=== PATIENT | female | born 1985 | race Caucasian/White ===

== ENCOUNTER 2020-08-14 17:54 | Emergency (ER) | payer BC, SELFPAY ==
[2020-08-14 18:00] VITALS: BP 122/68; PULSE 83; RESP 14; TEMP 36.7; O2SAT 99
--- NOTE | 2020-08-14 18:07 | ED.GENADULT ---
HPI - General Adult General Chief complaint: Skin/Abscess/Foreign Body Stated complaint: Rash Time Seen by Provider: 08/14/20 18:07 Source: patient Mode of arrival: ambulatory Limitations: no limitations History of Present Illness HPI narrative: 34-year-old female patient presents to the [facility] with complaints of a rash bilateral arms for the past 3 days. Patient states she had a similar rash like this on July 11 after she had started taking Lexapro. Patient states she thought it was a reaction to the Lexapro so she stopped the medication the rash went away. Patient states she has not restarted the Lexapro but the rashes come back now 3 days later. Denies any sore throat, trouble swallowing, denies any shortness of breath or chest pain. Patient states it is very itchy but denies taking any Benadryl for the itchiness. Denies putting any creams or lotions on it. Patient denies any new detergents, lotions or soaps. Related Data Home Medications Medication Instructions Recorded Confirmed albuterol sulfate [ProAir HFA] 1 puff INHALATION Q4H PRN 08/22/19 08/14/20 Allergies Allergy/AdvReac Type Severity Reaction Status Date / Time sulfamethoxazole Allergy Unknown Hives / Verified 08/14/20 18:10 Red Face trimethoprim Allergy Unknown Hives / Verified 08/14/20 18:10 Red Face Review of Systems Review of Systems: Narrative: CONSTITUTIONAL: Denies fever, chills, or sweats. EYES: Denies visual changes, redness, or discharge. ENT: Denies rhinorrhea, congestion, sore throat, or otalgia. CARDIOVASCULAR: Denies chest pain, palpitations, or edema. RESPIRATORY: Denies cough or dyspnea. GASTROINTESTINAL: Denies abdominal pain, nausea, vomiting, or diarrhea. GENITOURINARY: Denies dysuria or hematuria. SKIN: Positive rash with itching to bilateral upper extremity MUSCULOSKELETAL: Denies back pain, joint pain, or myalgia. NEUROLOGIC: Denies headache, numbness, or weakness. PSYCHIATRIC: Denies anxiety or depression. [facility] Past Medical History Medical History Anxiety Arthritis Asthma Lower extremity surgery planned Surgical History Surgical History Delivery by section H/O section History of hip surgery Family History Family History Mother Cancer Father Heart failure Social History Social History Smoking packs per day: 1 Smoking cigarettes per day: 20.0 Years smoked: 20 Smoking pack-years: 20.00 Smoking status: Current every day smoker Tobacco type: cigarettes Alcohol intake: current Drinks per week: 3 Substance use: never Comments At the time of my signature I agree with nursing past medical history, surgical, social, and family history. There is no relevant family history pertinent to the presenting complaint. Exam Narrative: Exam Narrative: GENERAL: Well-appearing, well-nourished, and in no acute distress. HEAD: Normocephalic, atraumatic. EYES: PERRLA and EOMI. ENT: Nares clear, no rhinorrhea or epistaxis. Mucous membranes moist. NECK: Supple. No lymphadenopathy CHEST: Clear to auscultation. No respiratory distress. HEART: Regular rate and rhythm. No murmur heard. Normal peripheral pulses. ABDOMEN: Soft, nontender, nondistended, normal active bowel sounds. EXTREMITIES: Normal range of motion. No edema. SKIN: Warm, dry, patient has small papule rash on erythemic base to various areas to the bilateral upper extremities. There is a similar rash noted to bilateral hands. It does not extend to the shoulders at all. NEURO: No focal deficits. Alert and oriented x3. Course Vital Signs Vital signs: Vital Signs Temperature 36.7 C 08/14/20 18:00 Pulse Rate 83 08/14/20 18:00 Respiratory Rate 14 08/14/20 18:00 Blood Pressure 122/68 08/14/20 1
== END 2020-08-14 18:24 | disposition home or self-care (01) ==
PROVIDERS: Emergency Provider Nurse Practitioner Family; PCP Family Medicine
DX: L23.9 Allergic contact dermatitis, unspecified cause (principal); F17.210 Nicotine dependence, cigarettes, uncomplicated; M19.90 Unspecified osteoarthritis, unspecified site; J45.909 Unspecified asthma, uncomplicated
CPT/HCPCS: 99213; G0463

== ENCOUNTER 2020-10-24 10:07 | Outpatient (CLI) | payer BC, SELFPAY ==
--- NOTE | ~2020-10-24 | XR_ITS ---
EXAMINATION: XR chest 2V 10/24/2020 10:16 INDICATION: Nicotine dependence PROCEDURE: 2 view chest COMPARISON: No prior studies for comparison. FINDINGS: The lungs are clear. The cardiomediastinal silhouette is within normal limits. There are no pleural effusions. There is no pneumothorax suspected. IMPRESSION: 1: NO ACUTE CARDIOPULMONARY DISEASE. Reviewed, dictated and finalized at location B. [employer]
== END 2020-10-24 10:08 | disposition home or self-care (01) ==
PROVIDERS: PCP Family Medicine; Visit Provider Family Medicine
DX: F17.200 Nicotine dependence, unspecified, uncomplicated (principal)
CPT/HCPCS: 71046

== ENCOUNTER 2021-01-12 12:32 | Outpatient (CLI) | payer BC, SELFPAY ==
--- NOTE | ~2021-01-12 | XR_ITS ---
EXAMINATION: XR wrist RT min 3V, XR wrist LT min 3V DATE: 01/12/2021 12:48 INDICATION: Bilateral wrist pain TECHNIQUE: 1. Posteroanterior, ulnar deviation, oblique, and lateral views of the left wrist were obtained. 2. Posteroanterior, ulnar deviation, oblique, and lateral views of the right wrist were obtained. COMPARISON: none FINDINGS: Alignment is normal at both wrists. No fracture. Joint spaces are normal. No cortical erosions, perio steal reaction or suspicious lytic or blastic bone lesions. Soft tissues are unremarkable. IMPRESSION: 1. Negative bilateral wrist radiographs. Reviewed, dictated and finalized at location A. IMPRESSION: 1. Negative bilateral wrist radiographs.
== END 2021-01-12 12:33 | disposition home or self-care (01) ==
LOC: ANHBWCIMG 12:34
PROVIDERS: PCP Family Medicine; Visit Provider Orthopaedic Surgery
DX: M25.531 Pain in right wrist (principal); M25.532 Pain in left wrist
CPT/HCPCS: 73110

== ENCOUNTER 2021-05-25 14:18 | Outpatient (CLI) | payer BC, SELFPAY ==
--- NOTE | ~2021-05-25 | XR_ITS ---
EXAMINATION: XR knee RT min 4V, XR tibia fibula RT 2V DATE: 05/25/2021 14:39 INDICATION: Right knee pain. Surgery 4 years prior. TECHNIQUE: 1. Weight bearing anteroposterior and Savage, sunrise, and flexed lateral views of the right knee were obtained 2. AP and lateral views of the right tibia and fibula were obtained. COMPARISON: None. FINDINGS: Old healed tibial plateau fracture with medial and lateral plate and screw fixations. There is also a n additional fixation pin. Alignment of the healed fracture appears near-anatomic. There is up to 2.5 mm incongruity between the articular surface of the lateral tibial plateau and the articular surface along the lateral aspect of the intercondylar eminence. Tricompartmental osteoarthritis with moderat e joint space narrowing can the lateral compartment, mild in the medial compartment and mild in the p atellofemoral compartment. No right knee joint effusion. No acute fracture. Right ankle joint space a ppears normal on the frontal projection. There are couple small round lucencies projecting over the m id tibial diaphysis likely representing tracks for prior external fixation/traction. IMPRESSION: 1. Old healed internally fixed right tibial plateau fracture with likely secondary lateral compartmen t predominant moderate tricompartmental osteoarthritis at the right knee. Reviewed, dictated and finalized at location A. IMPRESSION: 1. Old healed internally fixed right tibial plateau fracture with likely second jodi lateral compartment predominant moderate tricompartmental osteoarthritis at the right knee.
== END 2021-05-25 14:19 | disposition home or self-care (01) ==
PROVIDERS: PCP Family Medicine; Visit Provider Orthopaedic Surgery
DX: M17.11 Unilateral primary osteoarthritis, right knee (principal)
CPT/HCPCS: 73564; 73590

== ENCOUNTER → 2021-06-01 04:00 | Outpatient (CLI) | payer BC, SELFPAY ==
[2021-06-01 19:01] LABS: SARS-CoV-2 RNA PCR Negative
== END ==
PROVIDERS: PCP Family Medicine; Visit Provider Orthopaedic Surgery
DX: Z01.812 Encounter for preprocedural laboratory examination (principal); Z20.822 Contact with and (suspected) exposure to COVID-19
CPT/HCPCS: C9803; U0003; U0005

== ENCOUNTER 2021-06-02 13:49 | Outpatient (CLI) | payer BC, SELFPAY ==
[2021-06-02 21:52] LABS: Vitamin D 25 Hydroxy 37.6 ng/mL
[2021-06-09 10:07] LABS: Amphetamine Negative
[2021-06-09 10:08] LABS: Barbiturates Negative; Oxidant Negative; pH 7.1
[2021-06-09 10:09] LABS: Marijuana Metabolite Positive
[2021-06-09 10:11] LABS: Cocaine Metabolite Negative; Opiates Negative
[2021-06-09 10:12] LABS: Benzodiazepines Negative
[2021-06-09 10:13] LABS: Marijuana Metabolite 63
== END 2021-06-02 13:50 | disposition home or self-care (01) ==
LOC: ANHBWCLAB 13:50
PROVIDERS: PCP Family Medicine; Visit Provider Family Medicine
DX: F41.9 Anxiety disorder, unspecified (principal); R79.89 Other specified abnormal findings of blood chemistry
CPT/HCPCS: 36415; 80299; 82306

== ENCOUNTER 2021-06-04 01:09 | Day surgery (SDC) | payer BC, SELFPAY ==
[2021-05-27 12:34] VITALS: BMI 32.0
--- NOTE | 2021-06-03 12:13 | WPDANESEPPF ---
Anes - Initial Pre Proc Eval Procedure: Operation Date: 06/04/21 08:00 Proposed Procedures p Left Carpal Tunnel Release, Right Knee Cortisone Injection - Milton Brown MD Date/Time: 06/03/21 12:13 Surgeon: Milton Brown MD Pre Op Diagnosis: left carpal tunnel syndrome, right knee arthritis Patient Data Age: 35 Gender: F Height: 1.57 m Weight: 79.5 kg Allergies Allergy/AdvReac Type Severity Reaction Status Date / Time sulfamethoxazole Allergy Severe Hives / Verified 06/04/21 06:20 Red Face trimethoprim Allergy Severe Hives / Verified 06/04/21 06:20 Red Face latex Allergy Mild Rash Verified 06/04/21 06:20 Home Medications Medication Instructions Recorded Confirmed Type buprenorphine 4 mg-naloxone 1 mg 1 film SUBLINGUAL DAILY 01/13/21 06/04/21 History sublingual film ibuprofen 600 mg tablet 600 mg PO TID 01/13/21 06/04/21 History albuterol sulfate 90 mcg/actuation 1 inh INHALATION Q4H PRN #8.5 g 06/02/21 06/04/21 Rx aerosol inhaler alprazolam 0.25 mg tablet 0.25 mg PO TID PRN #90 tablet 06/02/21 06/04/21 Rx varenicline 0.5 mg (11)-1 mg (42) See Rx Instructions PO PER PKG DIR 06/02/21 06/04/21 Rx tablets in a dose pack #53 ea Patient hx anesthesia problems: none Family hx anesthesia problems: none PMFSH Past Medical History Medical History (Updated 06/03/21 @ 12:15 by Rai Andino MD) Anxiety Anxiety Arthritis Asthma Chronic narcotic use History of bipolar disorder 09/23/2020 1st discussed in this office patient has history before of manic episodes and has been put on Lamictal by psych and continues counseling History of postoperative complication of surgical procedure History of pulmonary embolism Latex allergy Left carpal tunnel syndrome Lower extremity surgery planned Pain of right knee after injury Smoker Wears glasses Surgical History Surgical History Delivery by section H/O section x4: 08, 13, 17, 19 History of hip surgery 2018 Family History Family History Mother Cancer Father Heart failure Other Asthma Breast cancer Lung cancer Social History Social History (Updated 06/02/21 @ 13:11 by Hilaria Mcqueen [facility]) Smoking packs per day: 0.5 Smoking cigarettes per day: 10.0 Years smoked: 20 Smoking pack-years: 10.00 Smoking status: Current every day smoker Tobacco type: cigarettes Alcohol intake: current Drinks per week: 2 Alcohol use details: beer Substance use: current Substance use type: marijuana Living arrangements: with family Gender identity (if verbalized by the patient): Female Spiritual care concerns: No Anes - Eval Final PreProcedure Day of Procedure 06/03/21 12:13 Patient weight: obese Heart: regular rate and rhythm Lungs: clear to auscultation and normal air movement Airway: Mallampati scale class II Neurological: alert and oriented Last oral intake: >/= 8 hours ASA classification: III Emergent: no Anesthetic plan: proceed Anesthesia type and monitoring: general GIVS Informed Consent: The patient's anesthetic plan and its attendant risks and benefits were discussed with the patient/family/POA. Questions were solicited and answers provided to the satisfaction of the patient/family/POA.
[2021-06-04] MEDS: ACETAMINOPHEN 500 MG TABLET 1000 MG PO (06:39)
[2021-06-04] MEDS: LACTATED RINGERS 1,000 ML 30 ML IV CONT (06:39)
[2021-06-04] MEDS: KETOROLAC 15 MG/ML VIAL (*BKC) IV PUSH (06:40)
[2021-06-04 06:47] VITALS: BMI 31.9
[2021-06-04 06:49] VITALS: BP 112/61; PULSE 86; RESP 16; TEMP 37.1; O2SAT 97
--- NOTE | 2021-06-04 06:54 | WPDHPUPDATE1 ---
History and Physical Update Update Date/Time: 06/04/21 06:54 History and Physical has been reviewed, including an updated exam of the patient. There are NO changes in the patient's condition. Risks, benefits, and alternatives have been discussed and questions answered. Patient agrees to proceed with procedure.
--- NOTE | 2021-06-04 08:21 | SUR.PREOP ---
PT NOTIFIED OF DELAY, DR FELICIANO IN MEETING
[2021-06-04] MEDS: ceFAZolin 2 GM/D5W 50 ML 2 GM/50 ML BAG IVPB (08:35)
[2021-06-04] MEDS: methylPREDNISolone ACETATE 80 MG/ML VIAL IM (08:46)
[2021-06-04] MEDS: BUPIVACAINE HCL 0.25% PF 30 ML VIAL INFILTRATE (08:46)
[2021-06-04] MEDS: BUPIVACAINE/EPINEPHRINE 0.25% 50 ML VIAL INFILTRATE (09:02)
[2021-06-04] MEDS: LIDOCAINE HCL 2% LOCAL INJ 20 ML VIAL 8 ML INFILTRATE (09:03)
[2021-06-04 09:13] VITALS: BP 92/53; PULSE 80; RESP 16; O2SAT 96
--- NOTE | 2021-06-04 09:21 | P.OP_ITS ---
Procedure Note - Detailed Date of Procedure 06/04/21 Pre-op Diagnosis left carpal tunnel syndrome, right knee arthritis Post-op Diagnosis same Procedure Performed Left carpal tunnel release, right knee injection cortisone Surgeon Milton Brown MD Acting Manager assistant director of public works Anesthesia MAC Indications 35-year-old with bilateral carpal tunnel syndrome, severe. Failed previous cortisone injection of the carpal tunnel. Presents now for operative release. Also with posttraumatic degeneration of the right knee. Indicated for cortisone injection to be performed while under anesthesia. Description of Procedure After informed consent was given, the operative extremity was marked in the preoperative holding area. Intravenous antibiotics were given. The patient was taken to the operating room and underwent conscious sedation by the anesthesia team. A time-out was performed confirming patient, procedure, and operative site. Local infiltrate at the carpal tunnel was done with 0.5% marcaine. Prepping and draping was done using chloraprep skin solution with usual surgical sterile technique. Anatomic landmarks marked on skin. Hand was exsanguinated and arm tourniquet inflated to 225mmHg. Incision was made with #15 blade knife in skin crease on volar palm. Hemostasis was achieved with electrocautery. Careful dissection was carried down to the transverse carpal ligament. Retractors were placed. Ligament overlying median nerve was incised in line with skin incision using paiute-shoshone blade. Proximal and distal release was done with metzenbaum scissors under direct visualization. Mosquito clamp was placed deep to ligament to protect nerve during release. The nerve was inspected and noted to be intact with mild flattening. Tendons had good excursion. The tourniquet was then released and pressure held. Bleeding points were coagulated with bipolar cautery. The wound was thoroughly irrigated with antibiotic solution. The skin was closed with 4-0 nylon interrupted suture. A sterile dressing was applied. Right knee was identified. Anatomic landmarks mapped out. Skin sterilized with Hibiclens prep solution. 25 gauge needle used to infiltrate the knee from the anteromedial position. 80 mg of Depo-Medrol and 2 cc of 0.25% Marcaine injected. Bandage placed. Good capillary refill in the fingers and thumb was noted. The patient was transported to the recovery room in stable condition. All sponge, needle, instrument counts were correct at the end of the case. Estimated Blood Loss 2 Tourniquet Time 7 Drains No Packing No Pathology none sent Complications None Condition stable Disposition PACU
[2021-06-04 09:40] VITALS: BP 92/52; PULSE 73; RESP 16; O2SAT 94
[2021-06-04 10:05] VITALS: BP 103/66; PULSE 64; RESP 16
== END 2021-06-04 10:15 | disposition home or self-care (01) ==
PROVIDERS: PCP Family Medicine; Visit Provider Orthopaedic Surgery
PROC: (CPT 64721; principal; 2021-06-04 08:00)
DX: G56.02 Carpal tunnel syndrome, left upper limb (principal); M17.11 Unilateral primary osteoarthritis, right knee; J45.909 Unspecified asthma, uncomplicated; F31.9 Bipolar disorder, unspecified; F41.9 Anxiety disorder, unspecified; Z79.891 Long term (current) use of opiate analgesic; Z86.711 Personal history of pulmonary embolism; Z79.51 Long term (current) use of inhaled steroids; F17.210 Nicotine dependence, cigarettes, uncomplicated; E66.9 Obesity, unspecified; Z68.31 Body mass index [BMI] 31.0-31.9, adult
CPT/HCPCS: 64721; 20610; A9270; J0690; J1040; J1100; J1170; J1885; J2250; J2405; J2704; J3010; J7120

== ENCOUNTER 2022-03-27 12:08 | Emergency (ER) | payer OTHER, SELFPAY ==
--- NOTE | 2022-03-27 12:13 | ED.SKABFB ---
HPI - Skin/Abscess/Foreign Bdy General Chief complaint: Skin/Abscess/Foreign Body Stated complaint: Skin Sore Time Seen by Provider: 03/27/22 12:13 Source: patient and RN notes reviewed History of Present Illness HPI narrative: Patient is a 36-year-old female who presents the urgent care with complaints of a firm red and sore to the left buttocks. Patient states that she has a history of ingrown hairs and gets them often. States that this area is been there for approximately 2 months but worse in the last couple days since her and her have been squeezing on it. Patient has been using Epson salt baths. States that she has had a little bit of nausea but otherwise denies of any fever or other signs of infection. No other acute complaints. No acute distress noted. Patient aware of the plan of care. Some parts of this dictation were generated by voice recognition software and may contain typographical and/or grammatical inaccuracies. Related Data Home Medications Medication Instructions Recorded Confirmed buprenorphine 4 mg-naloxone 1 mg 1 film sublingual DAILY 01/13/21 03/27/22 sublingual film (Suboxone) Allergies Allergy/AdvReac Type Severity Reaction Status Date / Time sulfamethoxazole Allergy Severe Hives / Verified 03/27/22 12:20 Red Face trimethoprim Allergy Severe Hives / Verified 03/27/22 12:20 Red Face latex Allergy Mild Rash Verified 03/27/22 12:20 Review of Systems Review of Systems: CONSTITUTIONAL: Denies fever, chills, or sweats. EYES: Denies visual changes, redness, or discharge. ENT: Denies rhinorrhea, congestion, sore throat, or otalgia. CARDIOVASCULAR: Denies chest pain, palpitations, or edema. RESPIRATORY: Denies cough or dyspnea. GASTROINTESTINAL: Denies abdominal pain, nausea, vomiting, or diarrhea. GENITOURINARY: Denies dysuria or hematuria. SKIN: Reports of a tender red bump to the buttocks MUSCULOSKELETAL: Denies back pain, joint pain, or myalgia. NEUROLOGIC: Denies headache, numbness, or weakness. All other systems reviewed are negative, except as documented in HPI. [facility] Past Medical History Medical History Anxiety Anxiety Arthritis Asthma Chronic narcotic use History of bipolar disorder 09/23/2020 1st discussed in this office patient has history before of manic episodes and has been put on Lamictal by psych and continues counseling History of postoperative complication of surgical procedure History of pulmonary embolism Latex allergy Left carpal tunnel syndrome Lower extremity surgery planned Pain of right knee after injury Right carpal tunnel syndrome Smoker Wears glasses Surgical History Surgical History Delivery by section H/O section x4: 08, 13, 17, 19 History of hip surgery 2018 Family History Family History Mother Cancer Father Heart failure Other Asthma Breast cancer Lung cancer Social History Social History (Updated 09/10/21 @ 11:[address] [facility]) Smoking packs per day: 0.25 Smoking cigarettes per day: 5.0 Years smoked: 20 Smoking pack-years: 5.00 Smoking status: Current every day smoker Tobacco type: cigarettes Alcohol intake: current Drinks per week: 2 Alcohol use details: beer Substance use: current Substance use type: marijuana Gender identity (if verbalized by the patient): Female Spiritual care concerns: No Comments At the time of my signature, I reviewed and agree with the nursing past medical, surgical, social, and family history. There is no relevant family history pertinent to the patient complaint. Exam Narrative: GENERAL: This is a well-nourished, well-developed patient, in no apparent distress. HEAD: normocephalic, atraumatic. EYES: PERRL. Sclera clear/white. Vision is grossly intact. EARS: Ex
[2022-03-27 12:15] VITALS: BP 133/75; PULSE 96; RESP 18; TEMP 37.1; O2SAT 98
[2022-03-27 12:22] VITALS: BP 133/75; PULSE 96; RESP 18; TEMP 37.1; O2SAT 98
== END 2022-03-27 12:30 | disposition home or self-care (01) ==
PROVIDERS: Emergency Provider Nurse Practitioner Family; PCP Family Medicine
DX: L73.9 Follicular disorder, unspecified (principal); F17.210 Nicotine dependence, cigarettes, uncomplicated; M19.90 Unspecified osteoarthritis, unspecified site; J45.909 Unspecified asthma, uncomplicated; Z86.711 Personal history of pulmonary embolism; F41.9 Anxiety disorder, unspecified
CPT/HCPCS: 99213; G0463

== ENCOUNTER 2022-05-13 02:14 | Day surgery (SDC) | payer OTHER, SELFPAY ==
[2022-05-04 13:47] VITALS: BMI 31.8
--- NOTE | 2022-05-04 14:03 | PC.NURSE ---
Report to the Outpatient Waiting Room, entrance under the green pavilion located off [facility], at time __06:30AM on date ___8[birth year]____. OR Time: ___08:30AM . - You and your visitor will be asked to self-screen and do not enter if you have any COVID symptoms. - Only one visitor and NO children visitors are allowed at this time. - The patient visitor is requested to leave or wait in car when not with patient due to restrictions. - A mask is required within the hospital. Patients may have clear liquids (water, carbonated beverages, clear teas, apple juice) until 3 hours prior to surgery with a maximum of 20 ounces. - No food from midnight until time of surgery - NO LIQUIDS AFTER 05:30AM Take the following medications with a SIP of water the morning of surgery: XANAX, INHALER PRN Medications to discontinue per physician NAPROXEN STOP 05-06 VITD STOP 05-07 Date to take last dose Please no make-up, nail swedish, hairspray, perfume, deodorant, or body powder the day of surgery. No jewelry (including any body piercings) or valuables the day of surgery, leave them at home. Please take a shower or bath the night before, or the morning of, surgery with an antibacterial soap. Wear comfortable, loose fitting clothing. - Jewelry must be removed prior to entering the operating room. Rings and piercings that are not removed may be cut off. - The hospital will not accept responsibility for valuables. - Please leave all valuables, including medications, at home the day of surgery. If you are going home after surgery, a licensed stud driver must drive you home. - NO public transportation without another adult. - We recommend that an adult stay with you for 24 hours following discharge. - We also recommend that you do not drive, make important decision, drink alcoholic beverages, or take any drugs that were not prescribed by your health care provider for at least 24 hours after your discharge time. Follow any additional instructions given to you from your surgeon. If you or anyone in your household have experienced Covid symptoms in the past week, please notify your surgeon or the nurse liaison at the phone number below for possible testing. Telephone instructions given to __PATIENT___and asked if any additional questions and then verbalized understanding. Patient advised to call surgeon office or pre surgery nurse liaison [phone] if any additional questions.
[2022-05-13] VITALS (8 sets, daily range): BP systolic 101–119; BP diastolic 63–95; PULSE 72–101; RESP 12–20; TEMP 36.1–36.3; O2SAT 92–99; BMI 31.7
[2022-05-13] MEDS: ACETAMINOPHEN 500 MG TABLET 1000 MG PO (07:08)
[2022-05-13] MEDS: KETOROLAC 15 MG/ML VIAL (*BKC) IV PUSH (07:09)
--- NOTE | 2022-05-13 07:13 | WPDHPUPDATE1 ---
History and Physical Update Update Date/Time: 05/13/22 07:13 History and Physical has been reviewed, including an updated exam of the patient. There are NO changes in the patient's condition. Risks, benefits, and alternatives have been discussed and questions answered. Patient agrees to proceed with procedure.
[2022-05-13] MEDS: LACTATED RINGERS 1,000 ML 30 ML IV CONT (07:20)
--- NOTE | 2022-05-13 08:13 | WPDANESEPPF ---
Anes - Initial Pre Proc Eval Procedure: Operation Date: 05/13/22 08:30 Proposed Procedures p Right Carpal Tunnel Release - Milton Brown MD Date/Time: 05/13/22 08:13 Surgeon: Milton Brown MD Pre Op Diagnosis: right carpal tunnel syndrome Patient Data Age: 36 Gender: F Height: 1.57 m Weight: 78.8 kg Last Vital Signs Temp 36.3 C L 05/13/22 06:05 Pulse 80 05/13/22 06:05 Resp 16 05/13/22 06:05 BP 119/71 05/13/22 06:05 Pulse Ox 99 05/13/22 06:05 O2 Del Method Room Air 05/13/22 06:05 Allergies Allergy/AdvReac Type Severity Reaction Status Date / Time sulfamethoxazole Allergy Severe Hives / Verified 05/13/22 06:43 Red Face trimethoprim Allergy Severe Hives / Verified 05/13/22 06:43 Red Face latex Allergy Mild Rash Verified 05/13/22 06:43 Home Medications Medication Instructions Recorded Confirmed Type buprenorphine 4 mg-naloxone 1 mg 1 film sublingual DAILY 01/13/21 05/04/22 History sublingual film (Suboxone) cholecalciferol (vitamin D3) 1,250 1,250 mcg PO WEEKLY #12 caps 09/15/21 05/13/22 Rx mcg (50,000 unit) capsule albuterol sulfate 90 mcg/actuation 1 inh inhalation Q4H PRN shortness 05/03/22 05/04/22 Rx aerosol inhaler of breath or wheezing #8.5 grams gabapentin 300 mg capsule 300 mg PO TID 05/04/22 05/04/22 History naproxen 500 mg tablet 500 mg PO BID 05/04/22 05/13/22 History alprazolam 0.5 mg tablet 0.5 mg PO TID PRN anxiety #90 tabs 05/11/22 Rx Patient hx anesthesia problems: none Family hx anesthesia problems: none Results Review: All pre-operative results and documents have been reviewed as part of the pre-operative evaluation. [facility] Past Medical History Medical History Anxiety Anxiety Arthritis Asthma Chronic narcotic use History of bipolar disorder 09/23/2020 1st discussed in this office patient has history before of manic episodes and has been put on Lamictal by psych and continues counseling History of postoperative complication of surgical procedure History of pulmonary embolism Latex allergy Left carpal tunnel syndrome Lower extremity surgery planned Pain of right knee after injury Right carpal tunnel syndrome Smoker Wears glasses Surgical History Surgical History Delivery by section H/O section x4: 08, 13, 17, 19 History of hip surgery 2017 Family History Family History Mother Cancer Father Heart failure Other Asthma Breast cancer Lung cancer Social History Social History Smoking packs per day: 0.25 Smoking cigarettes per day: 5.0 Years smoked: 20 Smoking pack-years: 5.00 Smoking status: Current every day smoker Tobacco type: cigarettes Second hand tobacco smoke exposure: Yes (PARENTS) Alcohol intake: current Drinks per week: 1 Alcohol use details: beer Substance use: former Substance use type: marijuana and methamphetamine Other substance usage details: LAST USED METH Last use: 05-03-22 Living arrangements: with family Gender identity (if verbalized by the patient): Female Spiritual care concerns: No Anes - Eval Final PreProcedure Day of Procedure 05/13/22 08:13 Patient weight: normal Heart: regular rate and rhythm Lungs: clear to auscultation Airway: Mallampati scale class II Neurological: alert and oriented Last oral intake: >/= 8 hours ASA classification: III Emergent: no Anesthetic plan: proceed Anesthesia type and monitoring: general GIVS and standard monitoring Results Review: All pre-operative results and documents have been reviewed as part of the pre-operative evaluation. Informed Consent: The patient's anesthetic plan and its attendant risks and benefits were discussed with the patient/fa
[2022-05-13] MEDS: ceFAZolin 2 GM/D5W 50 ML 2 GM/50 ML BAG IVPB (08:38)
[2022-05-13] MEDS: BUPIVACAINE/EPINEPHRINE 0.25% 50 ML VIAL 10 ML INFILTRATE (09:07)
--- NOTE | 2022-05-13 09:32 | W.PM.PROC2 ---
Procedure Note - Detailed Date of Procedure 05/13/22 Pre-op Diagnosis right carpal tunnel syndrome Post-op Diagnosis Same Procedure Performed Right carpal tunnel release Surgeon Milton Brown MD [facility] [employer] and speech assistant Anesthesia General Indications Operative Indications: The patient has history, exam findings, and electrodiagnostic findings consistent with carpal tunnel syndrome. Conservative treatment with bracing/ splinting, activity modifications, medication, ergonomics, injections has failed. Symptoms are daily and affect ability to use hand. The patient desires operative treatment. Description of Procedure After informed consent was given, the operative extremity was marked in the preoperative holding area. Intravenous antibiotics were given. The patient was taken to the operating room and underwent general anesthesia by the anesthesia team. A time-out was performed confirming patient, procedure, and operative site. Local infiltrate at the carpal tunnel was done with 0.5% marcaine. Prepping and draping was done using chloraprep skin solution with usual surgical sterile technique. Anatomic landmarks marked on skin. Hand was exsanguinated and arm tourniquet inflated to 225mmHg. Incision was made with #15 blade knife in skin crease on volar palm. Hemostasis was achieved with electrocautery. Careful dissection was carried down to the transverse carpal ligament. Retractors were placed. Ligament overlying median nerve was incised in line with skin incision using bever blade. Proximal and distal release was done with metzenbaum scissors under direct visualization. Mosquito clamp was placed deep to ligament to protect nerve during release. The nerve was inspected and noted to be intact with mild flattening. Tendons had good excursion. The tourniquet was then released and pressure held. Bleeding points were coagulated with bipolar cautery. The wound was thoroughly irrigated with antibiotic solution. The skin was closed with 4-0 nylon interrupted suture. A sterile dressing was applied. Good capillary refill in the fingers and thumb was noted. The patient was transported to the recovery room in stable condition. All sponge, needle, instrument counts were correct at the end of the case. Estimated Blood Loss 2 Tourniquet Time 8 Drains No Packing No Pathology None sent Complications None Condition Stable Disposition PACU
== END 2022-05-13 11:10 | disposition home or self-care (01) ==
PROVIDERS: PCP Family Medicine; Visit Provider Orthopaedic Surgery
PROC: (CPT 64721; principal; 2022-05-13 08:30)
DX: G56.01 Carpal tunnel syndrome, right upper limb (principal); F31.9 Bipolar disorder, unspecified; F41.9 Anxiety disorder, unspecified; J45.909 Unspecified asthma, uncomplicated; Z79.51 Long term (current) use of inhaled steroids; F17.210 Nicotine dependence, cigarettes, uncomplicated
CPT/HCPCS: 64721; A9270; J0690; J1885; J2250; J2405; J2704; J3010; J7120

== ENCOUNTER 2023-06-15 12:44 | Outpatient (CLI) | payer OTHER, SELFPAY ==
[2023-06-20 11:38] LABS: Alphahydroxymidazolam NEGATIVE ng/mL (<50); Alphahydroxytriazolam NEGATIVE ng/mL (<50); Amphetamines NEGATIVE ng/mL (<500); Barbiturates NEGATIVE ng/mL (<300); Benzodiazepines POSITIVE ng/mL (<100); Cocaine Metabolite NEGATIVE ng/mL (<100); Hydroxyethylflurazepam NEGATIVE ng/mL (<50); Lorazepam NEGATIVE ng/mL (<50); Marijuana Metabolite 22 ng/mL (<5); Methadone Metabolite NEGATIVE ng/mL (<100); Opiates NEGATIVE ng/mL (<100); Oxidant NEGATIVE mcg/mL (<200); Temazepam NEGATIVE ng/mL (<50)
== END 2023-06-15 12:45 | disposition home or self-care (01) ==
LOC: ANHBWCLAB 12:46
PROVIDERS: PCP Nurse Practitioner Adult Health; Visit Provider Nurse Practitioner Adult Health
DX: Z51.81 Encounter for therapeutic drug level monitoring (principal); Z79.899 Other long term (current) drug therapy
CPT/HCPCS: 80299

== ENCOUNTER 2023-07-18 13:21 | Outpatient (CLI) | payer OTHER, SELFPAY ==
--- NOTE | ~2023-07-18 | MMUS_ITS ---
EXAMINATION: MM diagnostic andre BI w chetna, US breast BI complete HISTORY: Breast pain TECHNIQUE: Additional 3-D tomosynthesis images of the breasts were performed and synthetic 2-D images were generated. CAD analysis was submitted and interpreted. High resolution bilateral complete breas t ultrasound was performed. COMPARISON: None BREAST PARENCHYMAL COMPOSITION: Breast composed of scattered areas of fibroglandular density FINDINGS: MAMMOGRAPHIC FINDINGS: There is possible architectural distortion upper aspect of the right breast on spot MLO view, althoug h this is not confirmed on CC or mediolateral views. There is no mammographic evidence for malignancy in the left breast. ULTRASOUND: Complete bilateral US of all 4 quadrants of the breasts and retroareolar region was reviewed. Normal heterogeneous echotexture without focal solid or cystic mass in either breast. IMPRESSION: 1. Probable benign right breast asymmetry in the upper aspect of the right breast on MLO view. No son ographic correlate. 2. Recommend 6 month follow-up diagnostic right mammogram BI-RADS category 3, probably benign findings. Reviewed, dictated and finalized at location A. [facility] IMPRESSION: 1. Probable benign right breast asymmetry in the upper aspect of the right cyn st on MLO view. No sonographic correlate. 2. Recommend 6 month follow-up diagnostic right mammogram BI-RADS category 3, probably benign findings.
== END 2023-07-18 13:22 | disposition home or self-care (01) ==
LOC: ANHIMG 13:23
PROVIDERS: PCP Nurse Practitioner Adult Health; Visit Provider Nurse Practitioner Adult Health
DX: N64.4 Mastodynia (principal); R92.8 Other abnormal and inconclusive findings on diagnostic imaging of breast
CPT/HCPCS: 76641; 77062; 77066; G0279

== ENCOUNTER 2023-10-14 11:03 | Emergency (ER) | payer OTHER, SELFPAY ==
[2023-10-14 11:20] VITALS: BP 127/86; PULSE 92; RESP 18; TEMP 37.1; O2SAT 97
--- NOTE | 2023-10-14 11:45 | ED.URI ---
HPI - URI/Sore Throat General Chief Complaint: Upper Respiratory Infection Stated Complaint: Sore Throat/Congestioin/Cough Time Seen by Provider: 10/14/23 11:45 Source: patient Mode of arrival: ambulatory Limitations: no limitations History of Present Illness HPI Narrative: 38-year-old female presents with complaint of nasal congestion, runny nose, postnasal drainage, intermittent sore throat for the past 4-5 days. Afebrile. No body aches, chills. Patient not taking any [id number] medications to treat her symptoms. Patient is well-appearing. All systems reviewed and negative except as noted above. Related Data Home Medications Medication Instructions Recorded Confirmed gabapentin 300 mg capsule 600 mg PO TID 04/27/23 10/14/23 methocarbamol 500 mg tablet 500 mg PO DAILY 10/14/23 10/14/23 tramadol 50 mg tablet 50 mg PO PRN PRN Pain 10/14/23 10/14/23 Allergies Allergy/AdvReac Type Severity Reaction Status Date / Time sulfamethoxazole Allergy Severe Hives / Verified 07/12/23 13:07 Red Face trimethoprim Allergy Severe Hives / Verified 07/12/23 13:07 Red Face latex Allergy Mild Rash Verified 07/12/23 13:07 Review of Systems Review of Systems: CONSTITUTIONAL: Denies fever, chills, or sweats. EYES: Denies visual changes, redness, or discharge. ENT: Reports rhinorrhea, congestion, sore throat. Denies otalgia. CARDIOVASCULAR: Denies chest pain, palpitations, or edema. RESPIRATORY: Reports cough denies dyspnea. GASTROINTESTINAL: Denies abdominal pain, nausea, vomiting, or diarrhea. GENITOURINARY: Denies dysuria or hematuria. SKIN: Denies rash or itching. MUSCULOSKELETAL: Denies back pain, joint pain, or myalgia. NEUROLOGIC: Denies headache, numbness, or weakness. PSYCHIATRIC: Denies anxiety or depression. All other systems reviewed are negative, except as documented in HPI. [facility] Past Medical History Medical History Anxiety Anxiety Arthritis Asthma Chronic narcotic use History of bipolar disorder 09/23/2020 1st discussed in this office patient has history before of manic episodes and has been put on Lamictal by psych and continues counseling History of postoperative complication of surgical procedure History of pulmonary embolism Latex allergy Left carpal tunnel syndrome Lower extremity surgery planned Pain of right knee after injury Right carpal tunnel syndrome Smoker Wears glasses Surgical History Surgical History Delivery by section H/O section x4: 08, 13, 17, 19 History of hip surgery 2022 Family History Family History Mother Cancer Father Heart failure Other Asthma Breast cancer Lung cancer Social History Social History Smoking packs per day: 0.25 Smoking cigarettes per day: 5.0 Years smoked: 20 Smoking pack-years: 5.00 Smoking status: Current every day smoker Tobacco type: cigarettes Second hand tobacco smoke exposure: Yes (PARENTS) Alcohol intake: current Drinks per week: 1 Alcohol use details: beer Substance use: former Substance use type: marijuana and methamphetamine Other substance usage details: LAST USED METH Last use: 05-03-22 Lack of Transportation: No Lack of Food: Never True Current Housing: I Have Housing Concerned About Future Housing: No Difficulty Paying Gas/Electric Bills: No Difficulty Paying for Meds: No Currently Unemployed: No Education: Associate Degree Difficulty w/ Childcare or Family Care: No Living arrangements: with family Gender identity (if verbalized by the patient): Female Spiritual care concerns: No Comments At time of signature, agree with nursing past medical, surgical, social and family history. There is no rele
== END 2023-10-14 12:08 | disposition home or self-care (01) ==
PROVIDERS: Emergency Provider Nurse Practitioner Family
DX: J30.9 Allergic rhinitis, unspecified (principal); F17.210 Nicotine dependence, cigarettes, uncomplicated; Z79.899 Other long term (current) drug therapy; Z20.822 Contact with and (suspected) exposure to COVID-19
CPT/HCPCS: 87081; 87426; 87804; 87880; 99213; G0463